=== PATIENT | female | born 1995 | race Hispanic/Latino ===

== ENCOUNTER → 2017-10-18 | Outpatient (CLI) | payer OTHER | END | disposition home or self-care (01) | LOC: YCFC.O 16:06 | PROVIDERS: ATTEND Nurse Practitioner Family | DX: R21 Rash and other nonspecific skin eruption (principal); R73.09 Other abnormal glucose ==

== ENCOUNTER 2020-04-29 08:34 | Emergency (ER) | payer OTHER ==
--- NOTE | 2020-04-29 08:52 | ED.PDOC ---
History of Present Illness - General Chief Complaint: DEVELOPMENT MGR Problem Stated Complaint: /spotting Time Seen by Provider: 04/29/20 08:51 Source: patient - History of Present Illness Initial Comments: 24-year-old at 5 weeks gestation by LMP who presents with chief complaint of vaginal spotting. Reports she had a small amount of spotting yesterday morning which then ceased but then occurred again this morning just prior to arrival which was slightly heavier and "gooey". Was on his generalized abdominal cramping which is constant and 4/10 severity, radiates to the back, exacerbating factors, no medications taken for relief. Denies any other vaginal discharge, dysuria, fevers, chills, nausea, vomiting, diarrhea. Last period began 03/25/2020. Dr. Gandara is her veterinary virologist but she has not yet seen him this . Ob Hx: 1) 2013, Full term VD, healthy 2) 2016, Full term VD, healthy 3) current Allergies/Adverse Reactions: Allergies NO KNOWN ALLERGY Allergy (Verified 04/29/20 08:53) Home Medications: Ambulatory Orders Acetaminophen W/ Codeine [Tylenol W/ CODEINE #3] 1 ea PO Q6H #30 05/27/15 Amoxicillin & Pot Clavulanate [Augmentin] 875 mg PO BID #14 tab 05/27/15 Past Medical History (General) - Patient Medical History Hx Seizures: No Hx Stroke: No Hx Dementia: No Hx Asthma: No Hx of COPD: No Hx Cardiac Disorders: No Hx Congestive Heart Failure: No Hx Pacemaker: No Hx Hypertension: No Hx Thyroid Disease: No Hx Diabetes: No Hx Gastroesophageal Reflux: No Hx Renal Disease: No Hx Cancer: No Hx of HIV: No Hx Hepatitis C: No Hx MRSA: No - Vaccination History Hx Influenza Vaccination: Yes Hx Pneumococcal Vaccination: No - Social History Hx Tobacco Use: Yes - quit a year ago Hx Alcohol Use: No Hx Substance Use: No Hx Substance Use Treatment: No Hx Depression: No - Female History Hx Last Menstrual Period: 05/24/13 Patient : No Family Medical History - Family History Mother Family History: No Known Living Status: Still Living Physical Exam - Physical Exam General Appearance: Alert, Comfortable, No apparent distress Eye Exam: bilateral normal Ears, Nose, Throat: normal ENT inspection Neck: supple, normal inspection Respiratory: lungs clear, normal breath sounds, no respiratory distress, no accessory muscle use Cardiovascular/Chest: normal peripheral pulses, regular rate, rhythm, no edema, no gallop, no JVD, no murmur Peripheral Pulses: radial,right: 2+, radial,left: 2+ Gastrointestinal/Abdominal: normal bowel sounds, non tender, soft, no organomegaly Back Exam: normal inspection Extremity: normal range of motion, non-tender, normal inspection, no pedal edema, no calf tenderness, normal capillary refill Neurologic: no motor/sensory deficits, alert, normal mood/affect, oriented x 3 Skin Exam: normal color, warm/dry Progress - Progress Progress: 04/29/20 09:15 First trimester bleeding -consider spontaneous most likely. Consider also threatened/incomplete , ectopic , PID, UTI, cervical poly, vaginal lesions, other -pt stable, NAD -obtain bloodwork, serum quant hcg, transabdominal sono, pelvic/vaginal exam 04/29/20 09:57 -Pelvic/vaginal exam revealed large blood in vaginal vault which seems to be coming from the cervical os, cervix is closed without lesions, bimanual exam with slightly enlarged nontender uterus, no masses or ttp in adnexal regions -bedside transabdominal sono reveals slightly enlarged uterus without evidence of gestational sac. Unable to visualize ovaries or adnexal masses. -Labs reveal blood type O+ (Rhogam not indicated), normal H/H, normal serum WBC, serum quant hcg 28 - suspicious for miscarriage, UA with large blood, 3-5 WBC, 1+ bacteria, neg nitrites -will obtain transvaginal sono to confirm absence of gestational sac and rule out ectopic 04/29/20 10:58 -Transvaginal ultrasound revealed no gestational sac or embryonic tissue as well as no adnexal masses. -I discussed the patient with Dr. Gandara. He agrees with most likely diagnosis of spontaneous . Will need to repeat serum quant hcg in 2 days and pt is to be seen in his clinic in 4 days on Wednesday morning at 10:15 am. Discussed all of this with the patient as well as strict ED return precautions for heavy/prolonged bleeding, worsening pain, etc... -dc to home in good condition Saurabh Masters MD Billing #[id number] 04/29/20 09:39 Pelvis Transvaginal [US] Stat 04/29/20 09:51 GC CHLAMYDIA RNA,TMA Stat Laboratory Results - last 24 hr 04/29/20 04/29/20 04/29/20 08:59 08:59 08:59 WBC 5.1 RBC 4.79 Hgb 14.5 Hct 41.7 MCV 87.0 MCH 30.3 MCHC 34.8 RDW 13.0 Plt Count 216 MPV 8.5 Absolute Neuts (auto) 3.10 Absolute Lymphs (auto) 1.60 Absolute Monos (auto) 0.30 Absolute Eos (auto) 0.00 Absolute Basos (auto) 0.00 Neutrophils % 60.6 Lymphocytes % 31.5 Monocytes % 6.4 Eosinophils % 0.9 L Basophils % 0.6 Sodium 136 Potassium 3.7 Chloride 103 Carbon Dioxide 26 Anion Gap 10.7 L BUN 12 Creatinine 0.65 BUN/Creatinine Ratio 18.5 Random Glucose 97 Serum Osmolality 271.6 L Calcium 8.8 Beta HCG, Quant 28.0 H Urine Color Urine Appearance Urine pH Ur Specific [place] Urine Protein Urine Glucose (UA) Urine Ketones Urine Blood Urine Nitrite Urine Bilirubin Urine Urobilinogen Ur Leukocyte Esterase Urine RBC Urine WBC Ur Epithelial Cells Urine Bacteria Urine Mucus 04/29/20 08:59 WBC RBC Hgb Hct MCV MCH MCHC RDW Plt Count MPV Absolute Neuts (auto) Absolute Lymphs (auto) Absolute Monos (auto) Absolute Eos (auto) Absolute Basos (auto) Neutrophils % Lymphocytes % Monocytes % Eosinophils % Basophils % Sodium Potassium Chloride Carbon Dioxide Anion Gap BUN Creatinine BUN/Creatinine Ratio Random Glucose Serum Osmolality Calcium Beta HCG, Quant Urine Color Yellow Urine Appearance Sl cloudy Urine pH 6.5 Ur Specific [place] 1.025 Urine Protein Negative Urine Glucose (UA) Negative Urine Ketones Negative Urine Blood Large H Urine Nitrite Negative Urine Bilirubin Negative Urine Urobilinogen 0.2 Ur Leukocyte Esterase Negative Urine RBC 5-10 H Urine WBC 3-5 H Ur Epithelial Cells 10-20 Urine Bacteria 1+ Urine Mucus Moderate Departure - Departure Clinical Impression: Threatened in first trimester Time of Disposition: 10:55 Disposition: Discharge to Home or Self Care Condition: Good Departure Forms: ED Discharge - Pt. Copy, Patient Portal Self Enrollment Instructions: Miscarriage (DC) Diet: resume usual diet Activity: increase activity as tolerated Referrals: Dallas Gandara MD [Active Staff] - 1-5 Days Home Medications: Ambulatory Orders Acetaminophen W/ Codeine [Tylenol W/ CODEINE #3] 1 ea PO Q6H #30 05/27/15 Amoxicillin & Pot Clavulanate [Augmentin] 875 mg PO BID #14 tab 05/27/15 Additional Instructions: Remain well-hydrated and gradually advance your diet and activity level as tolerated. Follow-up with Dr. Gandara morning at 10:15 AM as directed for repeat evaluation. You will need to have repeat blood draw on Wednesday as directed prior to your visit. Return to the ED if you develop any concerning symptoms such as heavy vaginal bleeding, worsening pelvic or abdominal pain, intractable nausea and vomiting, fever/chills, etc. Take Tylenol 650 mg every 6 hours as needed for pain. I would advise that you continue to take a vitamin every day as well and avoid any alcohol or tobacco use until cleared by your veterinary virologist.
[2020-04-29 09:52] VITALS: O2SAT 99
--- NOTE | 2020-04-29 10:32 | US ---
EXAM: Pelvis Transvaginal TECHNIQUE: Transvaginal pelvic ultrasound. CLINICAL HISTORY: vaginal bleeding, 5 weeks COMPARISON STUDY: None. FINDINGS: A subtle echogenicity change within the anterior myometrium measures 2.6 x 2 x 2.1 cm. The uterus measures 9.7 x 4.7 cm. The endometrium is less than 9 millimeters. No gestational sac or intrauterine identified. Both ovaries are normal size and appearance with normal Doppler blood flow. The right ovary measures 2.4 x 2.6 x 2.9 cm and the left ovary measures 3.3 x 1.8 x 2.7 cm. There is no adnexal mass or abnormal fluid. A physiologic amount of free fluid is present. IMPRESSION: 1. No intrauterine or extrauterine identified. Please correlate with quantitative beta hCG levels to determine the necessity of follow-up imaging. 2. Suspected anterior uterine fibroid. Electronically signed by: Jules Wiggins MD 04/29/2020 10:31 AM CDT
[2020-04-29 11:13] VITALS: TEMP 98.1
[2020-04-29 11:14] VITALS: BP 127/89
== END 2020-04-29 11:05 | disposition home or self-care (01) ==
LOC: ER 08:34
DX: O20.0 Threatened abortion (principal); Z3A.01 Less than 8 weeks gestation of pregnancy; Z87.891 Personal history of nicotine dependence

== ENCOUNTER → 2020-11-18 | Outpatient (CLI) | payer OTHER | LOC: LAB.O 08:29 | PROVIDERS: ATTEND Emergency Medicine | DX: Z34.92 Encounter for supervision of normal pregnancy, unspecified, second trimester (principal) ==